=== PATIENT | female | born 1980 ===

== ENCOUNTER 2016-12-21 10:37 | Emergency (ER) | payer OTHER ==
[2016-12-21 10:37] VITALS: BMI 30.9
[2016-12-21 11:05] VITALS: BP 121/74; PULSE 77; TEMP 97.8; O2SAT 97
--- NOTE | 2016-12-21 11:05 | ED PDOC ---
HPI: Skin/Bite Injury Time Seen by Provider: 12/21/16 10:50 Chief Complaint (Nursing): Abnormal Skin Integrity Chief Complaint (Provider): Rash and itchiness History Per: Patient History/Exam Limitations: no limitations Onset/Duration Of Symptoms: Days (2 weeks), Intermittent Episodes Current Symptoms Are (Timing): Still Present Quality Of Symptoms: Itching Severity: Mild Additional History Per: Patient Additional Complaint(s): 36 y/o female c/o rash to the face and itchy scalp intermittently for 2 weeks. Patient took Benadryl last night. No throat swelling or Shortness of breath. No new substances or foods. Patient has no medical problems. Past Medical History Reviewed: Historical Data, Nursing Documentation, Vital Signs Vital Signs: Last Vital Signs Temp 97.8 F 12/21/16 10:53 Pulse 77 12/21/16 10:53 Resp 16 12/21/16 11:59 BP 121/74 12/21/16 10:53 Pulse Ox 97 12/21/16 11:22 - Family History Family History: States: Unknown Family Hx - Home Medications Home Medications: Ambulatory Orders Medication Instructions Recorded Naproxen [Naprosyn] 1 tab PO BID PRN #60 tab 01/16/15 DiphenhydrAMINE [Benadryl] 25 mg PO Q6H #20 cap 12/21/16 Famotidine [Pepcid] 20 mg PO BID #20 tab 12/21/16 Prednisone 50 mg PO DAILY #4 tab 12/21/16 - Allergies Allergies/Adverse Reactions: Allergies Allergy/AdvReac Type Severity Reaction Status Date / Time No Known Allergies Allergy Verified 01/16/15 19:03 Review of Systems ROS Statement: Except As Marked, All Systems Reviewed And Found Negative ENT: Negative for: Throat Swelling Respiratory: Negative for: Shortness of Breath Skin: Positive for: Rash Physical Exam - Reviewed Nursing Documentation Reviewed: Yes Vital Signs Reviewed: Yes - Physical Exam Appears: Positive for: Well, Non-toxic, No Acute Distress Head Exam: Positive for: ATRAUMATIC, NORMAL INSPECTION, NORMOCEPHALIC Skin: Positive for: Warm, Dry, Rash (Erythema to the left chin and right temporal area) ENT: Positive for: Pharynx Is (clear). Negative for: Pharyngeal Erythema, Tonsillar Swelling, Other (Lip swelling, tongue swelling) Neck: Positive for: Normal, Supple Cardiovascular/Chest: Positive for: Regular Rate, Rhythm Respiratory: Positive for: Normal Breath Sounds, Other (Speaking in full sentences). Negative for: Rales, Rhonchi, Wheezing Gastrointestinal/Abdominal: Positive for: Soft. Negative for: Tenderness Neurologic/Psych: Positive for: Alert, Oriented - ECG O2 Sat by Pulse Oximetry: 97 (RA) Pulse Ox Interpretation: Normal Medical Decision Making Medical Decision Making: Initial Impression: * Rash to the face and itchy scalp on and off for 2 weeks. Initial Plan: * Benadryl * Pepcid * Prednisone Time: 10:55 Scribe Attestation Documented by Amy allison acting as a scribe for Mally Hernandez MD. Provider Attestation: All medical record entries made by the Scribe were at my direction and personally dictated by me. I have reviewed the chart and agree that the record accurately reflects my personal performance of the history, physical exam, medical decision making, and the department course for this patient. I have also personally directed, reviewed, and agree with the discharge instructions and disposition. Disposition - Clinical Impression Clinical Impression: Rash - Disposition Referrals: [facility] [Outside] Disposition: Routine/Home Disposition Time: 11:50 Condition: STABLE Prescriptions: DiphenhydrAMINE [Benadryl] 25 mg PO Q6H #20 cap Famotidine [Pepcid] 20 mg PO BID #20 tab Prednisone 50 mg PO DAILY #4 tab Instructions: Acute Rash (ED) Forms: [employer] (Romansh) Print Language: KYRGYZ
[2016-12-21 11:59] VITALS: RESP 16
== END 2016-12-21 11:59 | disposition home or self-care (01) ==
LOC: H.ER 10:37
DX: L29.9 Pruritus, unspecified (principal)

== ENCOUNTER 2017-12-22 10:28 | Emergency (ER) | payer OTHER ==
[2017-12-22 10:35] VITALS: BMI 25.4
[2017-12-22 10:37] VITALS: BP 116/72; RESP 18; TEMP 98.6; O2SAT 99
--- NOTE | 2017-12-22 11:49 | ED PDOC ---
HPI: Chest Pain Time Seen by Provider: 12/22/17 10:45 Chief Complaint (Nursing): Chest Pain Chief Complaint (Provider): Chest Pain History Per: Patient, Supervisor [employer] (Deepthi #[id number]) History/Exam Limitations: no limitations Onset/Duration Of Symptoms: Days (x 1 week) Current Symptoms Are (Timing): Still Present Quality: "Pain" Associated Symptoms: Dyspnea Additional Complaint(s): 37 year old female presents to the ED with intermittent episodes of strong, left sided chest pain associated with shortness of breath and decreased appetite , onset 1 week ago. Patient reports pain worsens when she does activities, like walking up the stairs. She denies history of similar symptoms. Her mother a month ago and she is requesting to speak with crisis. denies SI or HI. Denies fever, chills, history of blood clots, leg pain and leg swelling. denies abdominal pain or vaginal bleeding. PMD: none provided Past Medical History Reviewed: Historical Data, Nursing Documentation, Vital Signs Vital Signs: Last Vital Signs Temp 98.6 F 12/22/17 10:36 Pulse 85 12/22/17 15:08 Resp 18 12/22/17 10:36 BP 116/72 12/22/17 10:36 Pulse Ox 99 12/22/17 15:08 - Medical History PMH: No Chronic Diseases Denies: Deep Vein Thrombosis - Surgical History Surgical History: No Surg Hx - Family History Family History: States: Unknown Family Hx - Social History Current smoker - smoking cessation education provided: No Alcohol: None Drugs: Denies - Home Medications Home Medications: Ambulatory Orders Medication Instructions Recorded Naproxen [Naprosyn] 1 tab PO BID PRN #60 tab 01/16/15 DiphenhydrAMINE [Benadryl] 25 mg PO Q6H #20 cap 12/21/16 Famotidine [Pepcid] 20 mg PO BID #20 tab 12/21/16 Prednisone 50 mg PO DAILY #4 tab 12/21/16 - Allergies Allergies/Adverse Reactions: Allergies Allergy/AdvReac Type Severity Reaction Status Date / Time No Known Allergies Allergy Verified 01/16/15 19:03 SHAILESH Risk Score for UA/NSTEMI - SHAILESH Risk Score Age > 64: NO 3 or more CAD Risk Factors: NO Known CAD (Stenosis greater than 50%): NO Aspirin use in past 7 days: NO Severe Angina: NO EKG ST changes greater than 0.5mm: NO Positive Cardiac Marker: NO SHAILESH Score: 0 Risk %: 5% Curb-65 Severity Score - CURB-65 Severity Score Confusion: No Bun >19mg/dl (>7mmol/L): No Respiratory Rate greater than/equal to 30: No Systolic BP <90 or Diastolic BP less than/equal 60mmHg: No Age >64: No Curb-65 Score: 0 Percentage 30-day mortality: 0.6% Wells Criteria for PE - Wells Criteria for Pulmonary Embolism Clinical Signs and Symptoms of DVT: No P.E is #1 Diagnosis, or Equally Likely: No Heart Rate >100: No Immobilization at least 3 days;Surgery previous 4 weeks: No Previous, objectively diagnosed PE or DVT: No Hemoptysis: No Malignancy w/treatment within 6 months, or palliative: No Total Score: 0 Review of Systems ROS Statement: Except As Marked, All Systems Reviewed And Found Negative Constitutional: Negative for: Fever, Chills Cardiovascular: Positive for: Chest Pain Respiratory: Positive for: Shortness of Breath Musculoskeletal: Negative for: Leg Pain Physical Exam - Reviewed Nursing Documentation Reviewed: Yes Vital Signs Reviewed: Yes - Physical Exam Appears: Positive for: Non-toxic, No Acute Distress Head Exam: Positive for: ATRAUMATIC, NORMAL INSPECTION, NORMOCEPHALIC Skin: Positive for: Normal Color, Warm, Dry Eye Exam: Positive for: EOMI, Normal appearance, PERRL ENT: Positive for: Normal ENT Inspection Neck: Positive for: Normal, Painless ROM, Supple Cardiovascular/Chest: Positive for: Regular Rate, Rhythm. Negative for: Murmur Respiratory: Positive for: Normal Breath Sounds. Negative for: Respiratory Distress Gastrointestinal/Abdominal: Positive for: Normal Exam, Soft. Negative for: Tenderness Back: Positive for: Normal Inspection Extremity: Positive for: Normal ROM. Negative for: Deformity Neurologic/Psych: Positive for: Alert, Oriented (x 3). Negative for: Motor/ Sensory Deficits - Laboratory Results Result Diagrams: 12/22/17 11:40 12/22/17 11:40 - ECG ECG: Positive for: Interpreted By Me, Viewed By Me ECG Rhythm: Positive for: Sinus Rhythm (normal) Rate: 85 O2 Sat by Pulse Oximetry: 99 (RA) Pulse Ox Interpretation: Normal - Radiology X-Ray: Read By Radiologist X-Ray Interpretation: No Acute Disease Medical Decision Making Medical Decision Makin:32 Impression: chest pain and shortness of breath rule out cardiac, pneumonia Plan: --CBC --CMP --troponin --CXR --Crisis evaluation cxr negative 14:06 Patient is medically cleared and will be evaluated by crisis. 14:45 Patient was evaluated by crisis. Diagnosis is adjustment disorder as per Dr. Rueda. Labs revealed elevated LFTs. Patient will be referred to clinic for follow up. pt notified that her LFTS are elevated. pt states, before she leaves, that she wants a test., Positive . pt informed, along with environmental maintenance worker Jessica, who went to talk to her about the . pt given resources for outpt follow up [facility], and psychiatric outpt. Scribe Attestation: Documented by Jodie Peng, acting as a scribe for Hernandez White MD Provider Scribe Attestation: All medical record entries made by the Scribe were at my direction and personally dictated by me. I have reviewed the chart and agree that the record accurately reflects my personal performance of the history, physical exam, medical decision making, and the department course for this patient. I have also personally directed, reviewed, and agree with the discharge instructions and disposition. Disposition - Clinical Impression Clinical Impression: Adjustment disorder, Atypical chest pain, - Patient ED Disposition Is Patient to be Admitted: No Counseled Patient/Family Regarding: Studies Performed, Diagnosis, Need For Followup - Disposition Referrals: [facility] [Outside] [facility] [Outside] [facility] [[facility]] Disposition: Routine/Home Disposition Time: 14:30 Condition: IMPROVED Additional Instructions: Follow up with outpatient psychiatric appointment as well as in the women [facility] within one week for follow up return to the ED with any worsening or concerning symptoms Instructions: Adjustment Disorder, Medications and , Chest Pain That Is Not Caused by the Heart (DC) Forms: [employer] (Serbian) Print Language: OMANI
[2017-12-22 11:52] LABS: BASO % 0.1 % (0.0-2.0); EOS # 0.4 K/uL (0.0-0.7); EOS % 4.6 % (0.0-4.0); HEMOGLOBIN 13.1 g/dL (12.0-16.0); LYMPH # 1.9 K/uL (1.0-4.3); LYMPH % 21.2 % (20.0-40.0); MEAN CELL VOLUME 88.2 fl (81.0-99.0); MEAN CORPUSCULAR HEMOGLOBIN 30.7 pg (27.0-31.0); MEAN CORPUSCULAR HGB CONC 34.8 g/dL (33.0-37.0); MEAN PLATELET VOLUME 9.2 fl (7.2-11.7); MONO # 0.6 K/uL (0.0-0.8); MONO % 6.6 % (0.0-10.0); NEUT # 6.1 K/uL (1.8-7.0); NEUT % 67.5 % (50.0-75.0); NRBC % 0.1 % (0.0-0.0); RBC 4.27 Mil/uL (3.80-5.20); RED CELL DISTRIBUTION WIDTH 14.5 % (11.5-14.5)
[2017-12-22 12:04] LABS: ALB/GLOB RATIO 1.5 (1.0-2.1); ALBUMIN 4.1 g/dL (3.5-5.0); ALT/SGPT 71 U/L (9-52); AST/SGOT 42 U/L (14-36); BLOOD UREA NITROGEN 7 mg/dl (7-17); CALCIUM 8.8 mg/dL (8.4-10.2); GFR NON-AFRICAN AMERICAN > 60
--- NOTE | 2017-12-22 12:04 | RAD ---
Date of service: 12/22/2017 HISTORY: cp COMPARISON: No prior. TECHNIQUE: Chest PA and lateral FINDINGS: LUNGS: No active pulmonary disease. PLEURA: No significant pleural effusion identified. No pneumothorax apparent. CARDIOVASCULAR: Normal. OSSEOUS STRUCTURES: No significant abnormalities. VISUALIZED UPPER ABDOMEN: Normal. OTHER FINDINGS: None. IMPRESSION: No active disease.
[2017-12-22 12:11] VITALS: PULSE 85
== END 2017-12-22 15:21 | disposition home or self-care (01) ==
LOC: H.ER 10:28
DX: R07.89 Other chest pain (principal); F43.20 Adjustment disorder, unspecified; Z33.1 Pregnant state, incidental